=== PATIENT | female | born 1995 | race Two or more races ===

== ENCOUNTER → 2017-01-24 | Outpatient (CLI) | payer OTHER, SELFPAY ==
[~2017-01-24] MED LIST: MOTRIN800 MG PO; PERCOCET 5-3251 EACH PO; PRENATAL 1+1)(P1 TAB PO
== END | disposition disaster alternative care site (69) ==
LOC: GRAD 10:48
DX: S32.010D Wedge compression fracture of first lumbar vertebra, subsequent encounter for fracture with routine healing (principal); X58.XXXD Exposure to other specified factors, subsequent encounter